=== PATIENT | male | born 1985 | race Caucasian/White ===

== ENCOUNTER 2017-12-25 13:08 | Emergency (ER) | payer BC ==
[~2017-12-25] VITALS: Ht 185.4 cm; Wt 109.1 kg
[2017-12-25 13:30] VITALS: BP 146/92; PULSE 84; RESP 16; TEMP 98.1; O2SAT 100
--- NOTE | 2017-12-25 14:11 | PD ---
HPI Chief Complaint: Headache Time Seen by Provider: 13:50 Travel History International Travel<30 days: No Contact w/Intl Traveler<30days: No Traveled to known affect area: No History of Present Illness HPI Patient is a 32-year-old male presenting to the emergency department for evaluation of a headache. Patient states he has had a headache when he wakes up in the morning for the last 3 days. The headache resolves by noon, he has taken Tylenol and ibuprofen which help alleviate the pain. At its worst is a 6 out of 10, dull. He localizes it to the anterior scalp and the base of the skull. There is no radiation, no visual changes, no photophobia, no nausea, no dizziness. Patient states that they have been at [place] for the last 4 days, he reports feeling as if he may be dehydrated. He has no significant past medical history. He denies any injury or trauma to his head. Patient denies any neck pain or fevers. Symptom onset was gradual, symptoms are mild in nature. Additionally patient has an area of a possible skin infection to his right lower leg that he noticed several days ago. He denies any purulent drainage or warmth. [facility] Past Medical History Medical History: Denies Significant Hx Social History Tobacco Use: No Allergies-Medications (Allergen,Severity, Reaction): Coded Allergies: No Known Allergies (Unverified , 12/25/17) Review of Systems Except as stated in HPI: all other systems reviewed are Neg HENT: Positive: Headaches Physical Exam Narrative GENERAL: Well-developed, well-nourished, well-appearing male. Presenting in no acute distress. SKIN: Warm and dry. 2 cm area of erythema to the mid right lower leg. No fluctuance or tenderness noted on palpation. HEAD: Atraumatic. Normocephalic. EYES: Pupils equal and round. No scleral icterus. No injection or drainage. ENT: No nasal bleeding or discharge. Mucous membranes pink and moist. NECK: Trachea midline. No JVD. CARDIOVASCULAR: Regular rate and rhythm. RESPIRATORY: No accessory muscle use. Clear to auscultation. Breath sounds equal bilaterally. GASTROINTESTINAL: Abdomen soft, non-tender, nondistended. Hepatic and splenic margins not palpable. MUSCULOSKELETAL: Extremities without clubbing, cyanosis, or edema. No obvious deformities. NEUROLOGICAL: Awake and alert. No obvious cranial nerve deficits. Motor grossly within normal limits. Five out of 5 muscle strength in the arms and legs. Normal speech. PSYCHIATRIC: Appropriate mood and affect; insight and judgment normal. Data Data Last Documented VS Vital Signs Date Time Temp Pulse Resp B/P (MAP) Pulse Ox O2 Delivery O2 Flow Rate FiO2 12/25/17 13:30 98.1 84 16 146/92 (110) 100 Orders Orders Comprehensive Metabolic Panel (12/25/17 13:57) Complete Blood Count With Diff (12/25/17 13:57) Sodium Chlor 0.9% 1000 Ml Inj (Ns 1000 M (12/25/17 14:45) Ed Discharge Order (12/25/17 15:15) Labs Laboratory Tests Test 12/25/17 14:05 White Blood Count 7.9 TH/MM3 Red Blood Count 4.70 MIL/MM3 Hemoglobin 13.6 GM/DL Hematocrit 39.1 % Mean Corpuscular Volume 83.3 FL Mean Corpuscular Hemoglobin 28.9 PG Mean Corpuscular Hemoglobin Concent 34.7 % Red Cell Distribution Width 13.6 % Platelet Count 209 TH/MM3 Mean Platelet Volume 9.1 FL Neutrophils (%) (Auto) 71.6 % Lymphocytes (%) (Auto) 19.0 % Monocytes (%) (Auto) 7.5 % Eosinophils (%) (Auto) 1.5 % Basophils (%) (Auto) 0.4 % Neutrophils # (Auto) 5.6 TH/MM3 Lymphocytes # (Auto) 1.5 TH/MM3 Monocytes # (Auto) 0.6 TH/MM3 Eosinophils # (Auto) 0.1 TH/MM3 Basophils # (Auto) 0.0 TH/MM3 CBC Comment DIFF FINAL Differential Comment Blood Urea Nitrogen 13 MG/DL Creatinine 1.16 MG/DL Random Glucose 99 MG/DL Total Protein 7.4 GM/DL Albumin 3.7 GM/DL Calcium Level 8.7 MG/DL Alkaline Phosphatase 86 U/L Aspartate Amino Transf (AST/SGOT) 17 U/L Alanine Aminotransferase (ALT/SGPT) 37 U/L Total Bilirubin 0.5 MG/DL Sodium Level 140 MEQ/L Potassium Level 4.0 MEQ/L Chloride Level 107 MEQ/L Carbon Dioxide Level 25.3 MEQ/L Anion Gap 8 MEQ/L Estimat Glomerular Filtration Rate 72 ML/MIN MDM Medical Decision Making Medical Screen Exam Complete: Yes Emergency Medical Condition: Yes Interpretation(s) Laboratory Tests Test 12/25/17 14:05 White Blood Count 7.9 TH/MM3 Red Blood Count 4.70 MIL/MM3 Hemoglobin 13.6 GM/DL Hematocrit 39.1 % Mean Corpuscular Volume 83.3 FL Mean Corpuscular Hemoglobin 28.9 PG Mean Corpuscular Hemoglobin Concent 34.7 % Red Cell Distribution Width 13.6 % Platelet Count 209 TH/MM3 Mean Platelet Volume 9.1 FL Neutrophils (%) (Auto) 71.6 % Lymphocytes (%) (Auto) 19.0 % Monocytes (%) (Auto) 7.5 % Eosinophils (%) (Auto) 1.5 % Basophils (%) (Auto) 0.4 % Neutrophils # (Auto) 5.6 TH/MM3 Lymphocytes # (Auto) 1.5 TH/MM3 Monocytes # (Auto) 0.6 TH/MM3 Eosinophils # (Auto) 0.1 TH/MM3 Basophils # (Auto) 0.0 TH/MM3 CBC Comment DIFF FINAL Differential Comment Blood Urea Nitrogen 13 MG/DL Creatinine 1.16 MG/DL Random Glucose 99 MG/DL Total Protein 7.4 GM/DL Albumin 3.7 GM/DL Calcium Level 8.7 MG/DL Alkaline Phosphatase 86 U/L Aspartate Amino Transf (AST/SGOT) 17 U/L Alanine Aminotransferase (ALT/SGPT) 37 U/L Total Bilirubin 0.5 MG/DL Sodium Level 140 MEQ/L Potassium Level 4.0 MEQ/L Chloride Level 107 MEQ/L Carbon Dioxide Level 25.3 MEQ/L Anion Gap 8 MEQ/L Estimat Glomerular Filtration Rate 72 ML/MIN Vital Signs Date Time Temp Pulse Resp B/P (MAP) Pulse Ox O2 Delivery O2 Flow Rate FiO2 12/25/17 13:30 98.1 84 16 146/92 (110) 100 Differential Diagnosis Dehydration versus tension type headache versus cluster headache versus sinusitis versus cellulitis versus other Narrative Course Patient is a well-appearing 32-year-old male. Presenting for evaluation of a headache. Patient has no focal deficits on exam. Discussed findings with my attending physician. At this time we will check basic labs to rule out metabolic abnormality. Labs reviewed, no acute findings in a fight. Patient was given a liter of IV fluids. Patient was encouraged to follow-up with his primary doctor or return to emergency department for any new worsening symptoms. Patient was advised to maintain adequate fluid intake. Patient verbalized understanding of instructions. Additionally patient can take acetaminophen or ibuprofen as needed and as directed for pain. Patient stable for discharge. Diagnosis Primary Impression: Headache Qualified Codes: R51 - Headache Additional Impression: Cellulitis Qualified Codes: L03.115 - Cellulitis of right lower limb Referrals: Primary Care Physician 3 days Patient Instructions: Acute Headache (ED), General Instructions Additional Instructions: Maintain adequate fluid intake Take acetaminophen or ibuprofen as needed and as directed headache Follow-up with your primary doctor Return to emergency department for any new or worsening symptoms Med/Other Pt SpecificInfo: Prescription(s) given, No Change to Meds Scripts Cephalexin (Keflex) 500 Mg Cap 500 MG PO Q12H for Infection for 7 Days, #14 CAP 0 Refills Prov: Yael Canas 12/25/17 Disposition: 01 DISCHARGE HOME Condition: Stable Yael Canas Dec 25, 2017 14:11
[2017-12-25 14:29] LABS: AUTOMATED NEUTROPHIL # 5.6 TH/MM3 (1.8-7.7); BASOPHIL % 0.4 % (0.0-2.0); EOSINOPHIL # 0.1 TH/MM3 (0-0.4); EOSINOPHIL % 1.5 % (0.0-4.0); HEMATOCRIT 39.1 % (39.0-51.0); HEMOGLOBIN 13.6 GM/DL (13.0-17.0); LYMPHOCYTE # 1.5 TH/MM3 (1.0-4.8); MEAN CELL VOLUME 83.3 FL (80.0-100.0); MEAN CORPUSCULAR HEMOGLOBIN 28.9 PG (27.0-34.0); MEAN CORPUSCULAR HGB CONC 34.7 % (32.0-36.0); MEAN PLATELET VOLUME 9.1 FL (7.0-11.0); MONO % 7.5 % (0.0-8.0); MONOCYTE # 0.6 TH/MM3 (0-0.9); NEUT % 71.6 % (16.0-70.0); PLATELET COUNT 209 TH/MM3 (150-450); RED CELL DISTRIBUTION WIDTH 13.6 % (11.6-17.2); WHITE BLOOD COUNT 7.9 TH/MM3 (4.0-11.0)
[2017-12-25] MEDS ORDERED: SODIUM CHLOR 0.9% 1000 ML INJ 1,000 ML IV ONE (14:45)
--- NOTE | 2017-12-25 14:49 | PD ---
Data Data Last Documented VS Vital Signs Date Time Temp Pulse Resp B/P (MAP) Pulse Ox O2 Delivery O2 Flow Rate FiO2 12/25/17 13:30 98.1 84 16 146/92 (110) 100 Orders Orders Comprehensive Metabolic Panel (12/25/17 13:57) Complete Blood Count With Diff (12/25/17 13:57) Sodium Chlor 0.9% 1000 Ml Inj (Ns 1000 M (12/25/17 14:45) Labs Laboratory Tests Test 12/25/17 14:05 White Blood Count 7.9 TH/MM3 Red Blood Count 4.70 MIL/MM3 Hemoglobin 13.6 GM/DL Hematocrit 39.1 % Mean Corpuscular Volume 83.3 FL Mean Corpuscular Hemoglobin 28.9 PG Mean Corpuscular Hemoglobin Concent 34.7 % Red Cell Distribution Width 13.6 % Platelet Count 209 TH/MM3 Mean Platelet Volume 9.1 FL Neutrophils (%) (Auto) 71.6 % Lymphocytes (%) (Auto) 19.0 % Monocytes (%) (Auto) 7.5 % Eosinophils (%) (Auto) 1.5 % Basophils (%) (Auto) 0.4 % Neutrophils # (Auto) 5.6 TH/MM3 Lymphocytes # (Auto) 1.5 TH/MM3 Monocytes # (Auto) 0.6 TH/MM3 Eosinophils # (Auto) 0.1 TH/MM3 Basophils # (Auto) 0.0 TH/MM3 CBC Comment DIFF FINAL Differential Comment [facility] Supervised Visit with TRUMAN: Yes Narrative Course The history, exam, and medical decision-making in the associated mid-level provider note were completed with my assistance. I reviewed and agree with the findings presented. I attest that I had a [id number] encounter with the patient on the same day, and personally performed and documented my assessment and findings in the medical record. *My assessment and Findings: Is a 32-year-old male presents to the emergency department complaining of headache. Headaches been intermittent over the past several days. States mild to moderate in the morning, abates by midday with [id number] analgesics. No fevers. Looks well. No meningeal findings on exam. He looks comfortable. No headache now. I do not think this is a dangerous headache. No evidence of encephalitis or other symptoms. He states he had one similar headache in the past associate with physical exertion and dehydration. He has been a dyspnea for the past several days and the son is certainly possible. Indicates he looks well. We will give him some IV fluids. Check basic labs. Otherwise outpatient follow-up when he returns home if symptoms persist. Jaciel Sigala MD Dec 25, 2017 14:49
[2017-12-25 14:50] LABS: AST (GOT) 17 U/L (15-37); CHLORIDE 107 MEQ/L (98-107); CREATININE 1.16 MG/DL (0.60-1.30); GLOMERULAR FILTRATION RATE 72 ML/MIN (>89); SODIUM (NA) 140 MEQ/L (136-145)
[2017-12-25 15:07] LABS: ALBUMIN 3.7 GM/DL (3.4-5.0); ALKALINE PHOSPHATASE 86 U/L (45-117); ALT (GPT) 37 U/L (12-78); BICARBONATE 25.3 MEQ/L (21.0-32.0); BLOOD UREA NITROGEN 13 MG/DL (7-18); CALCIUM 8.7 MG/DL (8.5-10.1); GLUCOSE,RANDOM 99 MG/DL (74-106); TOTAL BILIRUBIN ADULT 0.5 MG/DL (0.2-1.0); TOTAL PROTEIN 7.4 GM/DL (6.4-8.2)
[2017-12-25] MEDS ORDERED: CEPH-460 PO (15:33)
== END 2017-12-25 15:29 | disposition home or self-care (01) ==
LOC: NEPD 13:08
DX: R51 Headache (principal); L03.115 Cellulitis of right lower limb
CPT/HCPCS: 80053; 85025; 99284; J7030